=== PATIENT | female | born 1970 | race Hispanic/Latino ===

== ENCOUNTER 2016-11-10 16:23 | Emergency (ER) | payer OTHER ==
[~2016-11-10] VITALS: Ht 154.9 cm; Wt 70.5 kg
[2016-11-10 16:32] VITALS: BP 163/100; PULSE 89; RESP 16; O2SAT 96
--- NOTE | 2016-11-10 16:58 | DRSVH ---
PROCEDURE: X-RAY CHEST ONE VIEW, PORTABLE ([id number]) INDICATIONS: CHEST PAIN TECHNIQUE: One view of the chest was acquired. COMPARISON: None. FINDINGS: Surgical changes and devices: None. Lungs and pleura: No pleural effusions or pneumothorax. Lungs are clear. Mediastinum: Mediastinal contours appear normal. Heart size is normal. Bones and chest wall: No suspicious bony lesions. Overlying soft tissues appear unremarkable. IMPRESSION: Negative chest. No acute cardiopulmonary process is evident. Dictated by: Dave Alvarez M.D. on 11/10/2016 at 15:55 Approved by: Dave Alvarez M.D. on 11/10/2016 at 15:56
--- NOTE | 2016-11-10 17:06 | ED.REPORT ---
HPI-Chest Pain 40 and Over Date of Service Nov 10, 2016 ED Provider: Eduin Gutiérrez MD Pt is a 46 year old female with a hx of HTN presenting to the ED complaining of 5/10 constant mid chest pressure onset when she woke up yesterday morning. The pain radiates into the back. Associated symptoms include dizziness and nausea yesterday but not today. Denies SOB, dyspnea on exertion, or diaphoresis. Pt took her hydrochlorothiazide yesterday, which she takes daily. Denies cardiac history, blood clots, heartburn or indigestion. Nursing Notes Stated Complaint: CHEST PAIN Chief Complaint: Chest Pain Nursing Notes Reviewed: Yes ([employer], [employer] not reconciled) Allergies: Coded Allergies: No Known Allergies (Verified , 06/12/04) General Time Seen by MD: 16:52 Chief Complaint Chest pain Hx Obtained From: Patient Arrived By: Walk-in Sudden in Onset?: No Onset Occurred: Yesterday Symptom Duration: Since onset Quality: Painful Severity: Current: Pain level 5 out of 10 Severity: Maximum: Pain level 5 out of 10 Recent Healthcare: No recent doctor visit, No recent hospitalization Similar Sx Previous: No Past Medical History Past Medical History Reports: Hypertension, Denies: Diabetes mellitus Past Surgical History Reports: Smoking History Never Smoker Social History Drug Use: Denies drug use Ambulatory Status Independent Review of Systems Respiratory: Denies: Dyspnea on exertion, Shortness of breath Cardiovascular: Reports: Chest pain GI: Reports: Nausea Skin: Denies Diaphoresis Neurologic: Reports: Dizziness Complete sys rev & neg: except as marked. Physical Exam Initial Vital Signs Vital Signs (First) Date Time Temp Pulse Resp B/P Pulse Ox O2 Delivery O2 Flow Rate FiO2 11/10/16 16:32 36.8 89 16 163/100 96 Room Air Initial VS: Reviewed, Vital signs normal (HTN) Head / Eyes: Atraumatic, Normocephalic, PERRL ENT: Mucous membranes moist, Conjunctiva normal, No scleral icterus Extremities: Vascular intact, Neuro intact, No swelling, No tenderness Skin: Warm, Dry, No cyanosis Neurologic: Alert, Oriented, Nonfocal Psychiatric: Mood/affect normal, Behavior normal, Normal thought content General/Constitutional: Awake, Alert, No acute distress Respiratory / Chest: Atraumatic, Breath sounds NL, Breath sounds = bilat, No respiratory distress Cardiovascular: Heart rate NL, Regular rhythm, Heart sounds NL, No murmurs, Peripheral circulation NL, Pulses = bilaterally, No gross BP differential Abdomen: Atraumatic, Soft, Non-tender Interpretation & Diagnostics Lab Results Interpretation Result Diagram: 11/10/16 1653 11/10/16 1653 Test 11/10/16 16:53 White Blood Count 8.0th/mm3 (3.8-10.1) Red Blood Count 4.79mil/mm3 (3.90-5.20) Hemoglobin 14.0g/dL (12.0-15.6) Hematocrit 39.9% (35.0-46.0) Mean Corpuscular Volume 83.3fL (81-100) Mean Corpuscular Hemoglobin 29.2pg (27.0-35.0) Mean Corpuscular Hemoglobin Concent 35.1% (32.0-37.0) Red Cell Distribution Width 12.2% (12.3-15.4) Platelet Count 269bil/L (150-400) Neutrophils (%) (Auto) 63.8% (40-74) Lymphocytes (%) (Auto) 27.4% (14-46) Monocytes (%) (Auto) 7.1% (4-12) Eosinophils (%) (Auto) 1.3% (0-5) Basophils (%) (Auto) 0.3% (0-3) Sodium Level 138mEq/L (134-144) Potassium Level 3.0mEq/L (3.5-5.2) Chloride Level 98mEq/L (97-108) Carbon Dioxide Level 26mmol/L (18-29) Blood Urea Nitrogen 11mg/dL (6-24) Creatinine 0.58mg/dL (0.57-1.00) Estimat Glomerular Filtration Rate 162mL/min (>59) Glucose Level 100mg/dL (60-99) Calcium Level 9.3mg/dL (8.5-10.1) Magnesium Level 2.3mg/dL (1.6-2.6) Total Bilirubin 0.5mg/dL (0.0-1.2) Aspartate Amino Transf (AST/SGOT) 29U/L (0-50) Alanine Aminotransferase (ALT/SGPT) 25U/L (0-32) Alkaline Phosphatase 123U/L (25-150) Troponin T < 0.010ug/L (0.0-0.011) Total Protein 8.1g/dL (6.4-8.4) Albumin 4.7g/dL (3.4-5.0) Lab Results Interpretation: CBC normal lites and CMP mild hypokalemia Troponin negative-symptoms started yesterday and present for more than 24 hours, serial ECG Interpretation Time: 16:41 Interpreted by: ED physician Normal ECG Interpretation: Normal rate (72), Normal sinus rhythm X-Ray Chest Interpretation Chest Xray Interpretation: IMPRESSION: Negative chest. No acute cardiopulmonary process is evident. Dictated by: Dave Alvarez M.D. on 11/10/2016 at 15:55 View: Portable, 1 view Interpretation / Wet Read by: Interpret - Radiologist Re-Eval/Medical Decision Med Decision/Clinical Course This is a 46-year-old female risk factor of hypertension and no prior history of heart disease presents with some chest pressure this been continuous since yesterday get checked out. It is nonexertional. Did have trace nausea earlier subsequently resolved. No diaphoresis no other features. The patient generally appears well, has a normal physical exam. She is mildly hypertensive, but is on medication for this. There are no findings of PE or heart failure evident on exam. Her EKG is normal, lab work is normal except for trace hypokalemia. Patient's HEART score is 1 and within negative troponin following symptoms are greater than 16 hours duration, serial enzymes are not indicated. The patient received aspirin prior to arrival but is doing well clinically appears well. She is couple discharged to follow-up with her PCP to discuss stress testing. Routine return precautions are reviewed. Patient's discharge in good condition. Source of Hx: Old records Time of Eval: 17:42 Patient Status: Condition improved Re-Evaluation/Progress Note: Updated on lab, x ray and EKG results. Chest pain is improved with Nitro. Discussed plan for discharge. Pt understands and agrees with plan. Differential Diagnosis: Positive: Chest pain, Negative: Acute coronary syndrome, Acute myocardial infarct, Anxiety disorder , Dysrhythmia, Gun shot wound chest, Pneumomediastinum, Pneumonia, Pneumothorax , Pulmonary edema, Pulmonary embolism, Stab wound chest, Stable angina Counseled Regarding: Diagnosis, Lab results, Need for follow-up, When/why to return to ED Discharge & Departure Primary Impression: Chest pain Chest pain type: unspecified Qualified Code: R07.9 - Chest pain, unspecified Disposition: Home Discharge Condition All VS Reviewed: Yes Condition: Improved Additional Instructions: Your EKG, chest x ray and labs were all reassuring. No dangerous cause for your symptoms was identified. Return to the ER if you develop any new or worsening symptoms. Follow up with your primary care doctor in the next few days. Referrals: Gretel Bernstein (Rona) Aida (PCP) Dov Attestation Portions of this note were transcribed by Rosa Camacho. I, Dr. Gutiérrez personally performed the history, physical exam and medical decision-making; I reviewed and confirmed the accuracy of the information in the transcribed note. Signed by: Dov Duncan, 11/10/2016. copies to: Gretel Bernstein Matthew F MD (Vivien) Nov 10, 2016 17:06 ROSA CAMACHO Nov 10, 2016 17:13
[2016-11-10 17:14] LABS: BASOPHILS % (AUTO) 0.3 % (0-3); EOSINOPHILS % (AUTO) 1.3 % (0-5); MONOCYTES % (AUTO) 7.1 % (4-12); Mean Corpuscular Hemoglobin 29.2 pg (27.0-35.0); Mean Corpuscular Volume 83.3 fL (81-100); NEUTROPHILS % (AUTO) 63.8 % (40-74); Platelet Count 269 bil/L (150-400)
[2016-11-10 17:27] LABS: TROPONIN T < 0.010 ug/L (0.0-0.011)
[2016-11-10 17:37] LABS: Magnesium 2.3 mg/dL (1.6-2.6)
[2016-11-10] MEDS ORDERED: Potassium Chloride 20 mEq/15 mL 15mL Oral Soln PO ONE (17:45)
[2016-11-10] MEDS ORDERED: Potassium Chloride 20 mEq SR Tablet PO ONE (17:55)
[2016-11-10 17:59] VITALS: BP 136/84
[2016-11-10 18:23] VITALS: BP 139/78; PULSE 61; RESP 19; O2SAT 99
== END 2016-11-10 18:25 | disposition home or self-care (01) ==
LOC: SED 16:23 → EDUNIT# 16:23 → EDBD 16:23 → SED 18:25
DX: R07.9 Chest pain, unspecified (principal); I10 Essential (primary) hypertension